=== PATIENT | female | born 1985 | race Asian ===

== ENCOUNTER 2019-06-07 16:58 | Emergency (ER) | payer OTHER ==
--- NOTE | 2019-06-07 17:24 | ED Physician Documentation ---
PD HPI URI - Stated complaint Stated Complaint: COUGH - Chief complaint Chief Complaint: Resp - History obtained from History obtained from: Patient - History of Present Illness Timing - onset: How many weeks ago (3) Timing duration: Weeks (3) Timing details: Gradual onset, Still present (Worse the last 2 to 3 days with now purulent sputum and feverish. Worsening wheezing and cough) Associated symptoms: Fever (for couple of days), Dry cough (for 3 weeks), Productive cough (for few days). No: Nasal congestion Contributing factors: COPD / asthma. No: Sick contact, Immunocompromised Similar symptoms before: Has not had sx before Recently seen: Emergency Dept (Recently seen with just a cough and prescribed an albuterol inhaler without improvement in that alone.) Review of Systems Constitutional: reports: Fever, Myalgias Nose: reports: Congestion. denies: Rhinorrhea / runny nose Throat: denies: Sore throat Respiratory: reports: Dyspnea, Cough, Wheezing GI: denies: Nausea, Vomiting, Diarrhea : denies: Dysuria PD PAST MEDICAL HISTORY - Past Medical History Cardiovascular: None Respiratory: Asthma Neuro: None Endocrine/Autoimmune: None GI: GERD - Past Surgical History Past Surgical History: No /[employer]: Other HEENT: Other - Present Medications Home Medications: Ambulatory Orders Medication Instructions Recorded Confirmed Cetirizine [ZyrTEC] 10 mg PO DAILY #15 tablet 01/22/19 Meclizine HCl [Motion Sickness 25 mg PO Q6H PRN #25 tablet 01/22/19 Relief] dexAMETHasone [Decadron] 4 mg PO DAILY #5 tablet 01/22/19 Benzonatate [Tessalon Perle] 100 mg PO TID PRN #25 capsule 06/07/19 Doxycycline Monohydrate 100 mg PO BID #14 tablet 06/07/19 dexAMETHasone [Decadron] 4 mg PO DAILY #5 tablet 06/07/19 - Allergies Allergies/Adverse Reactions: Allergies Allergy/AdvReac Type Severity Reaction Status Date / Time diphenhydramine HCl * AdvReac Nausea Verified 06/07/19 17:02 [From Benadryl] - Social History Does the pt smoke?: No Smoking Status: Never smoker Does the pt drink ETOH?: Yes Does the pt have substance abuse?: No - Immunizations Immunizations are current?: Yes - POLST Patient has POLST: No PD ED PE NORMAL - Vitals Vital signs reviewed: Yes - General General: Alert and oriented X 3, No acute distress, Well developed/nourished - HEENT HEENT: Moist mucous membranes, Pharynx benign - Neck Neck: Supple, no meningeal sign, No adenopathy - Cardiac Cardiac: RRR, No murmur - Respiratory Respiratory: Clear bilaterally - Abdomen Abdomen: Soft, Non tender - Derm Derm: Normal color, Warm and dry - Extremities Extremities: No tenderness to palpate, Normal ROM s pain, No edema - Neuro Neuro: Alert and oriented X 3, No motor deficit, Normal speech Results - Vitals Vitals: Vital Signs - 24 hr 06/07/19 06/07/19 06/07/19 18:15 18:34 19:17 Temperature 37.7 C H 37.3 C Heart Rate 83 99 86 Respiratory 22 18 17 Rate Blood Pressure 112/58 L 101/62 O2 Saturation 100 100 Oxygen O2 Source Room air - Rads (name of study) chest xray Radiology: Prelim report reviewed (no infiltrates), See rad report PD MEDICAL DECISION MAKING - ED course Complexity details: considered differential (Cough and some wheezing type asthma symptoms for 3 weeks and now having purulent cough and fever. Sounds more like secondary bacterial infection rather than secondary viral infection.), d/w patient Departure - Departure Disposition: 01 Home, Self Care Clinical Impression: Bronchitis Upper respiratory infection Qualifiers: URI type: unspecified URI Qualified Code(s): J06.9 - Acute upper respiratory infection, unspecified Exacerbation of asthma Qualifiers: Asthma severity: mild Asthma persistence: intermittent Qualified Code(s): J45.21 - Mild intermittent asthma with (acute) exacerbation Condition: Stable Record reviewed to determine appropriate education?: Yes Instructions: ED Upper Resp Infec Abx Tx Follow-Up: XI HINDS ARNP [Primary Care Provider] - Prescriptions: Benzonatate [Tessalon Perle] 100 mg PO TID PRN #25 capsule PRN Reason: Cough dexAMETHasone [Decadron] 4 mg PO DAILY #5 tablet Doxycycline Monohydrate 100 mg PO BID #14 tablet Comments: Stay well-hydrated. Use your albuterol inhaler 3 to 4 puffs 4 times a day with the spacer to improve your breathing. Add the Decadron steroid daily for 5 more days to reduce bronchial inflammation. Tessalon if needed for cough. Your chest x-ray appears clear so does not look like pneumonia of either viral or bacterial. This sounds likely to a been a viral illness but given the worsening symptoms and duration, I would be concern for a secondary bacterial bronchitis as well. Will add doxycycline antibiotic and see if there is improvement with a combination of these things over the next few days Discharge Date/Time: 06/07/19 19:18
[2019-06-07] MEDS ORDERED: CHERRY SYRUP 10 ML UDC PO ONE (18:06)
[2019-06-07] MEDS ORDERED: DEXAMETHASONE 10 MG/ML VIAL PO STA (18:06)
[2019-06-07] MEDS ORDERED: BENZONATATE 100 MG CAPSULE PO STA (18:06)
[2019-06-07] MEDS ORDERED: DOXYCYCLINE 100 MG TABLET PO STA (18:07)
--- NOTE | 2019-06-07 19:12 | XRAY Report ---
Reason: cough and wheezing for 3 weeks Procedure Date: 06/07/2019 Accession Number: [id number] / [id number] Procedure: XR - Chest 1 View X-Ray CPT Code: 15686 Final Report FULL RESULT: EXAM: CHEST RADIOGRAPHY EXAM DATE: 06/07/2019 06:30 PM. CLINICAL HISTORY: Cough and wheezing for 3 weeks. COMPARISON: None. TECHNIQUE: 1 view. FINDINGS: Lungs/Pleura: No focal opacities evident. No pleural effusion. No pneumothorax. Mediastinum: Within exam limitations, the cardiomediastinal contour is normal. Other: None. IMPRESSION: Normal single view chest. [facility]
[2019-06-07 19:18] VITALS: BP 101/62
== END 2019-06-07 19:18 | disposition home or self-care (01) ==
LOC: ED 16:58
DX: J06.9 Acute upper respiratory infection, unspecified (principal); J40 Bronchitis, not specified as acute or chronic; J45.21 Mild intermittent asthma with (acute) exacerbation
CPT/HCPCS: 71045; 94640; 94664; 99283; 99284; A9270